=== PATIENT | female | born 1955 | race African-American/Black ===

== ENCOUNTER 2018-09-05 17:14 | Emergency (ER) | payer OTHER ==
[~2018-09-05] VITALS: Ht 170.2 cm; Wt 68.0 kg
[2018-09-05] MEDS ORDERED: IBUPROFEN 600600 M1 PO (18:51)
[2018-09-05 19:14] VITALS: BP 173/95
== END 2018-09-05 19:15 | disposition home or self-care (01) ==
LOC: ER 17:14
DX: S05.12XA Contusion of eyeball and orbital tissues, left eye, initial encounter (principal); S05.11XA Contusion of eyeball and orbital tissues, right eye, initial encounter; H11.33 Conjunctival hemorrhage, bilateral; Y04.2XXA Assault by strike against or bumped into by another person, initial encounter; Y93.89 Activity, other specified; Y92.89 Other specified places as the place of occurrence of the external cause; Y99.8 Other external cause status

== ENCOUNTER 2021-01-06 14:21 | Emergency (ER) | payer OTHER ==
[~2021-01-06 14:21] MED LIST: IBUPROFEN 600600 M1 PO
[2021-01-06 14:25] VITALS: BP 141/85
== END 2021-01-06 15:48 | disposition left against medical advice (07) ==
LOC: ER 14:21
DX: K13.79 Other lesions of oral mucosa (principal); Z53.21 Procedure and treatment not carried out due to patient leaving prior to being seen by health care provider